=== PATIENT | male | born 1955 | race Native Hawaiian/Other Pacific Islander ===

== ENCOUNTER 2019-03-18 07:04 | Outpatient (CLI) | payer OTHER | END 2019-03-18 07:12 | disposition short-term general hospital (02) | LOC: AMB 07:04 | DX: R40.20 Unspecified coma (principal); R09.2 Respiratory arrest | CPT/HCPCS: A0425; A0433 ==

== ENCOUNTER 2019-03-18 07:16 | Emergency (ER) | payer OTHER ==
[~2019-03-18] VITALS: Ht 177.8 cm; Wt 136.1 kg
[2019-03-18 07:41] LABS: POTASSIUM 4.9 mmol/L (3.6-5.2)
[2019-03-18 07:45] LABS: PLATELET COUNT 126 K/uL (142-355)
== END 2019-03-18 08:16 | disposition expired ==
LOC: ED 07:18
PROVIDERS: Internal Medicine
PROC: 0T9B70Z Drainage of Bladder with Drainage Device, Via Natural or Artificial Opening (ICD-10-PCS; principal; 2019-03-18)
DX: R09.2 Respiratory arrest (principal)
CPT/HCPCS: 51702; 80053; 81000; 82550; 82553; 84484; 85027; 92950; 96374; 96375; 96376; 99291; J0171; J0282; J0461